=== PATIENT | female | born 2005 | race African-American/Black ===

== ENCOUNTER 2023-09-03 13:27 | Emergency (ER) | payer OTHER ==
[2023-09-03 16:10] VITALS: BP 117/64; PULSE 89; RESP 18; TEMP 97.5; BMI 26.5
== END 2023-09-03 15:08 | disposition home or self-care (01) ==
LOC: JERFT 13:27
PROC: 2W3JX1Z Immobilization of Right Finger using Splint (ICD-10-PCS; principal; 2023-09-03)
DX: S63.630A Sprain of interphalangeal joint of right index finger, initial encounter (principal); X50.9XXA Other and unspecified overexertion or strenuous movements or postures, initial encounter; Y93.72 Activity, wrestling; Y92.9 Unspecified place or not applicable
CPT/HCPCS: 73130-TC-RT-FY; 99283-25

== ENCOUNTER 2023-11-04 06:26 | Emergency (ER) | payer SELFPAY ==
[2023-11-04 06:49] VITALS: BP 114/77; PULSE 88; RESP 20; TEMP 97.8; BMI 25.8
[2023-11-04 08:32] LABS: EPI CELLS >36 /uL (0-25.1); HYALINE CASTS 5 /uL (0-3.1); PH,URINE 5.5 (5.0-8.0); URINE APPEARANCE CLEAR; URINE BACTERIA 51 /uL (0-1359); URINE BILIRUBIN NEGATIVE (NEGATIVE); URINE COLOR YELLOW; URINE GLUCOSE (UA) NEGATIVE (NEGATIVE); URINE KETONE NEGATIVE (NEGATIVE); URINE LEUK ESTERASE NEGATIVE (NEGATIVE); URINE NITRITE NEGATIVE (NEGATIVE); URINE PROTEIN 1+ (NEGATIVE); URINE RBC 20 /uL (0-23.9)
[2023-11-04 08:36] LABS: URINE WBC 183.4 /uL (0-25.8)
[2023-11-04] MEDS ORDERED: cefTRIAXone SODIUM 1 GM VIAL ONE (09:21)
== END 2023-11-04 11:00 | disposition home or self-care (01) ==
LOC: JER 06:26
DX: M54.50 Low back pain, unspecified (principal); R30.0 Dysuria; R10.30 Lower abdominal pain, unspecified; A64 Unspecified sexually transmitted disease
CPT/HCPCS: 36415; 81003; 84703; 87086; 87491; 87591; 87661; 99284-25